=== PATIENT | male | born 1940 | race Caucasian/White ===

== ENCOUNTER 2019-11-09 07:16 | Day surgery (SDC) | payer MEDICARE ==
[~2019-11-09 07:16] MED LIST: Acetaminophen TAB* 325 MG PO PRN; Buffered Lidocaine 1% SYRIN* 1 ML/SYRINGE INTRADERM ONE
[2019-11-09] MEDS ORDERED: Midazolam* 1 MG/ML 2 ML VIAL (2 MG) ONE (09:18)
[2019-11-09 10:22] VITALS: BP 138/90
[2019-11-09] MEDS ORDERED: Povidone Iodine 5% OPTH* 30 ML BTL ONE (13:52)
[2019-11-09] MEDS ORDERED: Lidocaine 2% w/ EPI 1:200,000* 20 ML SDV VIAL ONE (13:52)
[2019-11-09] MEDS ORDERED: Lidocaine 1% MPF ** 5 ML VIAL ONE (13:52)
[2019-11-09] MEDS ORDERED: Cyclopentolate 1% OPTH.SOL* 2 ML BTL ONE (13:52)
[2019-11-09] MEDS ORDERED: Proparacaine 0.5% OPHTH.SOL* 15 ML BTL ONE (13:52)
[2019-11-09] MEDS ORDERED: Neomycin/Polymy/Dex OPTH.SUSP* MAXITROL 0.1% 5 ML ONE (13:52)
[2019-11-09] MEDS ORDERED: acetaZOLAMIDE TAB* 250 MG ONE (13:52)
[2019-11-09] MEDS ORDERED: Phenylephrine OPHTH SOL 2.5%* 2 ML ONE (13:52)
[2019-11-09] MEDS ORDERED: Ketorolac 0.5% OPHTH (NF) 0.5 % 5 ML BTL ONE (13:52)
--- NOTE | 2019-11-09 13:59 | OP ---
OPERATIVE NOTE: DATE OF OPERATION: 11/09/19 DATE OF : 42 SURGEON: Konstantin Gomez M.D. PREOPERATIVE DIAGNOSIS: Cataract, right eye. POSTOPERATIVE DIAGNOSIS: Cataract right eye. OPERATIVE PROCEDURE: Extracapsular cataract extraction with intraocular lens implant, right eye. The indication for complex cataract surgery was pupil abnormalities requiring Malyugin ring. PROCEDURE: The patient was brought to the operating room after being given 1/2% Alcaine with epineph rine drops in the preoperative area. The eye was prepped and draped in the usual sterile fashion. S terile drape and eyelid speculum were placed. Again, topical 1/2% Alcaine with epinephrine was given . A paracentesis incision was made at the 9 o'clock position with the No.75 blade. Clear cornea inc ision 2.2 x 2.2-mm was created at the 12 o'clock position starting at the anterior limbus using the 2 .2-mm keratome. The anterior chamber was irrigated with 0.4 mL of 1% non-preservative intracameral l idocaine and filled with DisCoVisc. A capsulorrhexis was completed using the cystotome and the Utrat a forceps. Hydrodissection was performed with balanced salt solution. The lens nucleus was removed w ith the Phacoemulsification handpiece without incident. Cortex was removed with the irrigation-aspir ation handpiece. The capsular bag was re-inflated using DisCoVisc and an SN6AT3 23.5 implant was ins erted with the shooter, oriented to the 51 degree meridian, inserted with the shooter. Horizontal re ference mcguire made with the patient in the preoperative area in a seated position. All measurements were confirmed with ORA. Of note, the pupil was only about 4 mm. Prior to capsulorhexis, a Malyugin ring was placed. This was removed after insertion of the lens. The irrigation-aspiration handpiece was used to remove all residual DisCoVisc. The eye was refilled with balanced salt solution and the wound checked and found to be watertight. Topical Maxitrol drops were given. [id number]/[facility] #: [id number]
== END 2019-11-09 10:33 | disposition home or self-care (01) ==
LOC: OREAST 07:16
PROVIDERS: ATTEND Specialist
DX: H25.11 Age-related nuclear cataract, right eye (principal); H21.561 Pupillary abnormality, right eye; H40.033 Anatomical narrow angle, bilateral; H43.813 Vitreous degeneration, bilateral; Z83.511 Family history of glaucoma; I10 Essential (primary) hypertension; G25.81 Restless legs syndrome; Z87.891 Personal history of nicotine dependence; F32.9 Major depressive disorder, single episode, unspecified; G47.33 Obstructive sleep apnea (adult) (pediatric); E11.9 Type 2 diabetes mellitus without complications; M54.5 Low back pain; Z79.891 Long term (current) use of opiate analgesic; R53.82 Chronic fatigue, unspecified
CPT/HCPCS: A9270-GY; J2250; V2787

== ENCOUNTER 2019-11-16 06:54 | Day surgery (SDC) | payer MEDICARE ==
[2019-11-16] MEDS ORDERED: Midazolam* 1 MG/ML 2 ML VIAL (2 MG) ONE (08:32)
[2019-11-16 09:26] VITALS: BP 143/89
--- NOTE | 2019-11-16 10:32 | OP ---
DATE OF OPERATION: 11/16/2019 [facility] DATE OF : 1940. SURGEON: Konstantin Gomez M.D. PREOPERATIVE DIAGNOSIS: Cataract left eye. POSTOPERATIVE DIAGNOSIS: Cataract left eye. OPERATIVE PROCEDURE: Extracapsular cataract extraction with intraocular lens implant left eye. DESCRIPTION OF PROCEDURE: The patient was brought to the operating room after being given 1/2% Alcaine with epinephrine drops in the preoperative area. The eye was prepped and draped in the usual sterile fashion. Sterile drape and eyelid speculum were placed. Again, topical 1/2% Alcaine with epinephrine was given. A paracentesis incision was made at the 3 o'clock position with the No.75 blade. Clear cornea incision 2.2 x 2.2-mm was created at the 6 o'clock position starting at the anterior limbus using the 2.2-mm keratome. The anterior chamber was irrigated with 0.4 mL of 1% non-preservative intracameral lidocaine and filled with DisCoVisc. A capsulorrhexis was completed using the cystotome and the Utrata forceps. Hydrodissection was performed with balanced salt solution. The lens nucleus was removed with the Phacoemulsification handpiece without incident. Cortex was removed with the irrigation-aspiration handpiece. The capsular bag was re-inflated using DisCoVisc and an SN6AT3 22.5 implant was inserted with the shooter, oriented to the 114 degree meridian. All measurements were confirmed with ORA. The irrigation-aspiration handpiece was used to remove all residual DisCoVisc. The eye was refilled with balanced salt solution and the wound checked and found to be watertight. Topical Maxitrol drops were given. [id number]/[facility] #: [id number] [facility]ENTERShawna
[2019-11-16] MEDS ORDERED: Neomycin/Polymy/Dex OPTH.SUSP* MAXITROL 0.1% 5 ML ONE (13:20)
[2019-11-16] MEDS ORDERED: Ketorolac 0.5% OPHTH (NF) 0.5 % 5 ML BTL ONE (13:20)
[2019-11-16] MEDS ORDERED: Lidocaine 2% w/ EPI 1:200,000* 20 ML SDV VIAL ONE (13:20)
[2019-11-16] MEDS ORDERED: Lidocaine 1% MPF ** 5 ML VIAL ONE (13:20)
[2019-11-16] MEDS ORDERED: acetaZOLAMIDE TAB* 250 MG ONE (13:20)
[2019-11-16] MEDS ORDERED: Proparacaine 0.5% OPHTH.SOL* 15 ML BTL ONE (13:20)
[2019-11-16] MEDS ORDERED: Phenylephrine OPHTH SOL 2.5%* 2 ML ONE (13:20)
[2019-11-16] MEDS ORDERED: Cyclopentolate 1% OPTH.SOL* 2 ML BTL ONE (13:20)
[2019-11-16] MEDS ORDERED: Povidone Iodine 5% OPTH* 30 ML BTL ONE (13:20)
== END 2019-11-16 09:37 | disposition home or self-care (01) ==
LOC: OREAST 06:54
PROVIDERS: ATTEND Specialist
DX: H25.12 Age-related nuclear cataract, left eye (principal); H40.032 Anatomical narrow angle, left eye; H43.813 Vitreous degeneration, bilateral; Z83.511 Family history of glaucoma; Z87.891 Personal history of nicotine dependence; I10 Essential (primary) hypertension; G25.81 Restless legs syndrome; F32.9 Major depressive disorder, single episode, unspecified; G47.33 Obstructive sleep apnea (adult) (pediatric); E11.9 Type 2 diabetes mellitus without complications; I47.1 Supraventricular tachycardia; I35.0 Nonrheumatic aortic (valve) stenosis
CPT/HCPCS: A9270-GY; J2250; V2787